=== PATIENT | male | born 1955 | race Caucasian/White ===

== ENCOUNTER 2021-10-02 12:22 | Emergency (ER) | payer MEDICAID, OTHER ==
[~2021-10-02] VITALS: Ht 182.9 cm; Wt 95.3 kg
[~2021-10-02 12:22] MED LIST: ASPI325T4 PO; CLOP75TA28 PO; DIG025T PO; DIGO0.1262 PO; GEMF-19 PO; METH5T PO; METO-6 PO; MORP15TA PO; NIAC500T71 PO; NOR10T PO; WARF5TAB71 PO
[2021-10-02 12:28] VITALS: BP 125/70
[2021-10-02] MEDS ORDERED: SODIUM CHLORIDE 0.9% 500 ML IV ONE (12:45)
[2021-10-02] MEDS ORDERED: ONDANSETRON HCL 4 MG/2 ML VIAL IV ONE (12:45)
[2021-10-02 14:02] LABS: Basophils # (auto) 0.2 10 ^3/uL (0-0.2); Basophils % (auto) 4.9 % (0.0-2.0); Eosinophils # (auto) 0.1 10 ^3/uL (0-0.8); Eosinophils % (auto) 2.8 % (0.0-7.0); Hematocrit 45.2 % (41.0-53.0); Hemoglobin 15.4 g/dL (13.5-17.5); Lymphocytes # (auto) 1.2 10 ^3/uL (0.4-5.4); Lymphocytes % (auto) 24.6 % (10.0-50.0); Mean Corpuscular Hemoglobin 30.2 pg (28.0-32.0); Mean Corpuscular Hgb Conc. 34.1 g/dL (32.0-36.0); Mean Corpuscular Volume 88.7 fL (80.0-100.0); Monocytes # (auto) 0.6 10 ^3/uL (0-1.3); Monocytes % (auto) 12.1 % (0.0-12.0); Neutrophils # (auto) 2.8 10 ^3/uL (1.6-8.6); Neutrophils % (auto) 55.6 % (37.0-80.0); Nucleated Red Blood Cells % 0.2 %; Red Blood Cells 5.09 10^6/uL (4.5-5.90); Red Cell Distribution Width 14.1 % (11.8-14.3)
[2021-10-02 14:17] LABS: Albumin 4.2 g/dL (3.4-5.0); Potassium 4.3 mmol/L (3.5-5.1)
[2021-10-02 14:29] LABS: BUN/Creatinine Ratio 15.4; Bilirubin, Total 0.5 mg/dL (0.2-1.0); Total Protein 7.3 g/dL (6.4-8.2)
== END 2021-10-02 18:07 | disposition left against medical advice (07) ==
LOC: ER 12:22
DX: F11.23 Opioid dependence with withdrawal (principal); R00.2 Palpitations; R19.7 Diarrhea, unspecified; I48.91 Unspecified atrial fibrillation; J44.9 Chronic obstructive pulmonary disease, unspecified; K21.9 Gastro-esophageal reflux disease without esophagitis; E03.9 Hypothyroidism, unspecified; E78.5 Hyperlipidemia, unspecified; I12.9 Hypertensive chronic kidney disease with stage 1 through stage 4 chronic kidney disease, or unspecified chronic kidney disease; N18.9 Chronic kidney disease, unspecified; Z95.0 Presence of cardiac pacemaker; Z87.891 Personal history of nicotine dependence; Z79.01 Long term (current) use of anticoagulants; Z79.82 Long term (current) use of aspirin; Z79.899 Other long term (current) drug therapy; Z96.89 Presence of other specified functional implants
CPT/HCPCS: 36415; 71045; 80053; 84484; 85025; 93005; 96361; 96374; 99285; J2405; J7040